=== PATIENT | female | born 1995 | race Asian ===

== ENCOUNTER 2019-12-07 01:36 | Emergency (ER) | payer BC ==
[2019-12-07] MEDS ORDERED: Dexamethasone 10 MG/ML VIAL ONE (01:58)
== END 2019-12-07 02:15 | disposition home or self-care (01) ==
LOC: ERS 01:36
DX: J02.9 Acute pharyngitis, unspecified (principal); R21 Rash and other nonspecific skin eruption
CPT/HCPCS: 99282; J1100